=== PATIENT | male | born 1975 | race Caucasian/White ===

== ENCOUNTER 2019-02-12 06:20 | Emergency (ER) | payer SELFPAY ==
[~2019-02-12] VITALS: Ht 162.6 cm; Wt 94.2 kg
[2019-02-12 06:23] VITALS: BP 138/83; PULSE 55; RESP 19; Ht 162.6 cm; Wt 94.2 kg
[2019-02-12] MEDS ORDERED: MED4DP PO (06:34)
[2019-02-12] MEDS ORDERED: HC30CR25 TOP (06:34)
[2019-02-12] MEDS ORDERED: HYDR-3029 PO (06:34)
--- NOTE | 2019-02-12 08:06 | ERD ---
ER Documentation Chief Complaint Chief Complaint RASH; ITCHING, BURNING; X1DAY; WAS WORKING WITH PLANTS; UNSURE HPI 44-year-old male presenting with rash to arms and legs and torso. Patient states that 4 days ago he was working with plants and he feels that a irritant touched his skin. He has not use any medications since. He denies any numbness or tingling. Denies fevers. States that the rash is very itchy. Denies other medical problems. NKDA. Surgical history denies. Social history denies ROS All systems reviewed and are negative except as per history of present illness. Medications Home Meds Active Scripts Hydroxyzine Hcl* (Hydroxyzine Hcl*) 10 Mg Tablet, 10 MG PO Q6H PRN for ITCHING, #30 TAB Prov:SCARLET ANDERSON PA-C 02/12/19 Methylprednisolone* (Medrol* DOSE PACK) 4 Mg/Dose-Pack Tab.ds.pk, 4 MG PO . DIRECTED, #1 PACKET Prov:SCARLET NADERSON PA-C 02/12/19 Hydrocortisone* Topical (Hydrocortisone* Topical) 2.5%-28.3 Gm Cream..g., 1 APPLIC TOP BID, #1 TUB Prov:SCARLET ANDERSON PA-C 02/12/19 PMhx/Soc History of Surgery: No Anesthesia Reaction: No Hx Neurological Disorder: No Hx Respiratory Disorders: No Hx Cardiac Disorders: No Hx Psychiatric Problems: No Hx Miscellaneous Medical Probl: No Hx Alcohol Use: No Hx Substance Use: No Hx Tobacco Use: No Smoking Status: Never smoker FmHx Family History: No diabetes, No coronary disease, No other Physical Exam Vitals Vital Signs Date Temp Pulse Resp B/P (MAP) Pulse Ox O2 O2 Flow FiO2 Time Delivery Rate 02/12/19 98.7 55 19 138/83 99 06:23 (101) Physical Exam GENERAL: The patient is well-appearing, well-nourished, in no acute distress HEENT: Atraumatic. Conjunctivae are pink. Pupils equal, round, and reactive to light. There is no scleral icterus. Tympanic membranes clear bilaterally. Oropharynx clear. CHEST: Clear to auscultation bilaterally. There are no rales, wheezes or rhonchi. HEART: Regular rate and rhythm. No murmurs, clicks, rubs or gallops. EXTREMITIES: Equal pulses bilaterally. There is no peripheral clubbing, cyanosis or edema. No focal swelling or erythema. Full range of motion. Grossly neurovascularly intact. NEUROLOGIC: Alert and oriented. Cranial nerves II through XII intact. Motor strength in all 4 extremities with 5 out of 5 strength. Sensation grossly inta ct. Normal speech and gait. SKIN: Erythematous lesions with grouping of papules no vesicles. No purulence. No excoriation. Procedures/MDM MDM: 44-year-old male presenting with contact dermatitis. I have low suspicion for bacterial infection. I have low suspicion for viral infection. I have low suspicion for life-threatening rash. Patient is discharged with strict ER precautions and supportive medications. Patient is told if symptoms change or worsen to return immediately to the ER. All questions answered at discharge Departure Diagnosis: Primary Impression: Rash Condition: Stable Patient Instructions: Self-Care for Skin Rashes Ref[facility] Usted se dave hecho un examen mdico de control que le indica que no est en sarahy condicin que requiera tratamiento urgente en el Departamento de Emergencia. Un estudio ms profundo y el tratamiento de de la cruz condicin pueden esperar sin ningn riesgo hasta que usted sea atendida/o en el consultorio de de la cruz mdico o sarahy clnica. Es responsabilidad suya arreglar sarahy yrn para el seguimiento del deanne. MANEJO DE CONDICIONES NO URGENTES EN EL FUTURO 1) Si usted tiene un mdico de atencin primaria: Usted debera llamar a de la cruz mdico de atencin primaria antes de venir al departamento de emergencia. Despus de las horas de consultorio, de la cruz doctor o de la cruz asociado/a est disponible por telfono. El mdico o enfermero de cady en el servicio telefnico puede asesorarle por josephine medio para atender el problema, o deanne contrario se puede programar sarahy yrn. 2) Si usted no tiene un mdico de atencin primaria: Llame al mdico o clnica de referencia que aparece abajo ivette las horas de consultorio para hacer sarahy yrn para que le vean. CLINICAS: [place] [id number] [phone] [facility] [phone] [facility] [phone] [place] [phone] [place] [address] [phone] [facility] [phone] [address] Additional Instructions: FOLLOW UP WITH YOUR PRIMARY CARE PHYSICIAN TOMORROW.Return to this facility if you are not improving as expected. SCARLET ANDERSON PA-C Feb 12, 2019 08:06
== END 2019-02-12 07:16 | disposition home or self-care (01) ==
LOC: FTE 06:20
DX: R21 Rash and other nonspecific skin eruption (principal)
CPT/HCPCS: 99283